=== PATIENT | female | born 1970 | race Caucasian/White ===

== ENCOUNTER 2025-05-10 11:59 | Emergency (ER) | payer BC, SELFPAY ==
--- OUTSIDE RECORDS SUMMARY | 2025-05-10 12:02 | XMS_ITS | Clinical Summary ---
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 180 Tablet 3 06/05/2022 Active tamoxifen (NOLVADEX) 20 mg tabletIndicatio ns:Ductal carcinoma in situ (DCIS) of right breast Take 1 Tablet (20 mg) by mouth once daily. 90 Tablet 3 06/05/2022 Active varenicline (CHANTIX DOSEPAK) 0.5 mg (11)- 1 mg (42) tabletIndicatio ns:Encounter for smoking cessation counseling Days 1-3 take 0.5mg once daily; Days 4-7 take 0.5mg twice daily; then increase to 1mg twice daily. Take with meals. 1 Packet 06/05/2022 Active nicotine (Nicorette) 2 mg lozengeIndicati ons:Encounter for smoking cessation counseling Place 1 Lozenge (2 mg) in mouth, between cheek & gum every hour while awake as needed for Nicotine Craving. 72 Each 3 06/05/2022 Active venlafaxine (EFFEXOR XR) 75 mg cp24 Extended-Releas e capsuleIndicati ons:Menopausal syndrome TAKE 1 CAPSULE(75 MG) BY MOUTH EVERY DAY WITH A MEAL 90 Capsule 06/23/2023 Active pramipexole (MIRAPEX) 0.5 mg tabletIndicatio ns:Restless leg syndrome TAKE 1 TABLET(0.5 MG) BY MOUTH AT BEDTIME 30 Tablet 09/24/2023 Active traZODone (DESYREL) 100 mg tabletIndicatio ns:Restless leg syndrome TAKE 2 TABLETS(200 MG) BY MOUTH AT BEDTIME 60 Tablet 09/24/2023 Active Active Problems Problem Noted Date Diagnosed Date Ductal carcinoma in situ (DCIS) of right breast 05/30/2021 Depression 10/17/2008 Resolved Problems Problem Noted Date Diagnosed Date Resolved Date Alcoholism 10/17/2008 04/17/2021 Immunizations Immunization Administration Dates Next Due COVID-19 vaccine ([employer] 30mcg/0.3mL) PF, MDV 06/01/2021 DTaP 06/27/2006 HepA-HepB (Twinrix) 06/27/2006 Influenza Virus, Unspecified 04/17/2009,04/13/20 08,06/27/2006 Influenza, IIV3 (Age 6-35 mos) 04/17/2009 Influenza, IIV3 (Age >=3 years) 04/13/2008,06/27 Influenza, IIV4 03/07/2021,06/07/2020 Influenza, IIV4 (=>6mos) MDV 04/21/2019,04/12/20 19 Pneumococcal Poly,23-Valent (Pneumovax) 03/07/20 21 Td, Preservative Free (age >= 7 Years) 6 Tdap 06/27/2006 Typhoid (injectable) 06/27/2006 Typhoid (oral) 06/27/2006 Zoster (Shingrix-RZV, recombinant) 06/05/2022 Family History Medical History Relation Name Comments No Known Problems Brother 1 No Known Problems Brother 2 No Known Problems Brother 3 No Known Problems Daughter No Known Problems Father Lung cancer Maternal Grandfather Coronary artery disease Maternal Grandmother No Known Problems Mother No Known Problems Paternal Grandfather No Known Problems Paternal Grandmother No Known Problems Sister 1 No Known Problems Sister 2 No Known Problems Son Anesthesia Malignant Hyperthermia No Family History Anesthesia Problem No Family History Cancer-breast No Family History Cancer-ovarian No Family History Relation Name Status Comments Brother 1 Alive Brother 2 Alive Brother 3 Alive Daughter Alive Father Alive Maternal Grandfather Maternal Grandmother Other Mother Alive Paternal Grandfather Paternal Grandmother Sister 1 Alive Sister 2 Alive Son Alive Social History Tobacco Use Types Packs/Day Years Used Date Smoking Tobacco: Former Cigarettes 0.3 30.8 0 06/16/1990 - 03/18/2021 Smokeless Tobacco: Former Tobacco Cessation:Counseling Given: Yes Comments:03/16/21 quit date Alcohol Use Standard Drinks/Week Comments Never 0 (1 standard drink = 0.6 oz pur e alcohol) sober since September 2007 Humiliation, Afraid, Rape, and Kick questionnair e Answer Date Recorded Fear of Current or Ex-Partner No Emotionally Abused No 05/03/2019 Physically Abused No 05/03/2019 Sexually Abused No 05/03/2019 PHQ-2 Answer Date Recorded PHQ-2 TOTAL SCORE 1 03/07/2021 Social Connections Answer Date Recorded Frequency of Communication with Friends and Fami ly Not on file 06/06/2021 Financial Resource Strain Answer Date R ecorded Difficulty of Paying Living Expenses Not on file 06/06/2021 Difficulty of Paying Living Expenses Not on file 06/06/2021 Comments No Sex and Gender Information Value Date Recorded Sex Assigned at Not on file Legal Sex Female 5:23 AM INTERNAL CONSULTANT Gender Identity Not on file Sexual Orientation Not on file Obstetrics History Last Filed Vital Signs Vital Sign Reading Time Taken Comments Blood Pressure 118/84 06/05/2022 11:10 AM INTERNAL CONSULTANT Pulse 86 06/05/2022 11:10 AM INTERNAL CONSULTANT Temperature 36.2 C (97.2 F) 04/23/2021 11:29 AM INTERNAL CONSULTANT Respiratory Rate 16 04/23/2021 12:00 PM INTERNAL CONSULTANT Oxygen Saturation 96% 06/05/2022 11:10 AM INTERNAL CONSULTANT Inhaled Oxygen Concentration - - Weight 80 kg (176 lb 6.4 oz) 06/05/2022 11:10 AM INTERNAL CONSULTANT Height 167.6 cm (5' 6) 06/05/2022 11:10 AM INTERNAL CONSULTANT Body Mass Index 28.47 06/05/2022 11:10 AM INTERNAL CONSULTANT Plan of Treatment Health Maintenance Due Date Last Done Comments HIV for age 15-65 1987 Hepatitis C screening for ag e 18-79 1990 Hepatitis B series for 19+ ( 2 of 3 - Hep B Twinrix 3-dose series) 07/25/2006 06/27/2006 Colonoscopy through age 75 2017 Depression screening for age 12+ 03/07/2022 03/07/2021, 02/16/2020, 05/05/2019, Additional history exists Pneumococcal series for age 50+ (2 of 2 - PCV) 2022 03/07/2021 RSV vaccine for adults or (1 - Risk 50-74 years 1-dose series) 2022 Zoster (shingles) series for age 50+ (2 of 2) 07/31/2022 06/05/2022 Pap test for age 21-65 03/19/2023 8, 03/19/2018, 09/10/2013, Additional history exists BMI (ht and wt on same day) for age 18+ 06/05/2023 06/05/2022, 04/17/2021, 03/07/2021, Additional history exists Lipids for age 45-75 05/03/2024 05/03/2019 Mammogram for age 45-75 05/09/2024 05/09/20 23, 06/05/2022, 04/13/2021, Additional history exists Influenza Vaccine (#1) 2025 , 06/07/2020, 04/21/2019, Additional history exists Tetanus booster 11/16/2025 11/17/2015, 06/27/2006 Procedures Procedure Name Priority Date/Time Associated Diagnosis Comments XR MAMMO ANTELMO BILAT SCREEN Routine 05/09/2023 10:33 AM INTERNAL CONSULTANT Visit for screening mammogram LIPID PANEL W REFLEX MEASURED LDL Routine 05/03/2019 3:22 PM INTERNAL CONSULTANT Lipid screening [employer] THIN PREP PAP SCREEN IMAGED Routine 03/19/2018 2:26 PM CDT Screening for malignant neoplasm of cervix from Last 3 Months or Most Recently Relevant to Health Maintenance Results * XR MAMMO ANTELMO BILAT SCREEN (05/09/2023 10:33 AM INTERNAL CONSULTANT) Anatomical Region Laterality Modality BREASTS, Breast Left, Breast Right Bilateral Mammography Impressions 05/09/2023 4:53 PM INTERNAL CONSULTANT There is no radiographic evidence for malignancy. Recommend annual mammograms. MAMMOGRAM ASSESSMENT: ACR 1 Negative PATIENTS: You will also receive a letter with your examination results in an easy to read format. If you have questions about your results, please contact your referring provider. Narrative 05/09/2023 4:53 PM INTERNAL CONSULTANT For Patients: As a result of the Century Cures Act, medical imaging exams and procedure reports are released immediately into your electronic medical record. You may view this report before your referring provider. If you have questions, please contact your health care provider. XR MAMMO ANTELMO BILAT SCREEN [[id number]] CLINICAL HISTORY: This is an asymptomatic 52 y.o. patient. INDICATION FOR EXAM: Mammogram Screening. TECHNIQUE: CC & MLO views were obtained. This study was evaluated with the assistance of Computer-Aided Detection. Breast Tomosynthesis was used in interpretation. COMPARISON FILM: Yes 06/05/22 [facility] 04/13/21 [email or web address] FINDINGS: The breasts are extremely dense, which lowers the sensitivity of mammography. There are no dominant masses, suspicious micro calcifications or areas of architectural distortion. us Joseline Kaplan MD MAMMO Final Resul t * LIPID PANEL W REFLEX MEASURED LDL [[id number]] (05/03/2019 3:22 PM INTERNAL CONSULTANT) CHOLESTEROL,TOTAL 162 100 - 199 mg/dL 05/03/2019 7:08 PM [facility] TRIGLYCERIDES 105 <150 mg/dL 05/03/2019 7:08 PM [facility] HDL CHOLESTEROL 46 >40 mg/dL 9 7:[address] [facility] NON-HDL CHOLESTEROL 116 <145 mg/dl 05/03/2019 7:[address] [facility] CHOL/HDL RATIO 3.52 <4.50 05/03/2019 7:[address] [facility] LDL CHOLESTEROL 95 <=130 mg/dL 05/03/2019 7:[address] [facility] PROVIDER ORDERED STATUS RANDOM 05/03/2019 7:08 PM [facility] Blood BLOOD SPECIMEN / Unknown Venipuncture / Unknown 05/03/2019 3:22 PM INTERNAL CONSULTANT 05/03/2019 3:23 PM INTERNAL CONSULTANT us Joseline Kaplan MD CHEMISTRY Final Resul t [facility] [address] [place] [address], [place] * [employer] TEACHER THIN PREP PAP SCREEN IMAGED [[id number]] (03/19/2018 2:26 PM CDT) Case Report Gynecologic Cytology Report Case: [id number] Authorizing Provider: Bhavani Connelly, Collected: 03/19/2018 1426 PA Ordering Location: [facility] Received: 03/19/2018 1447 Clinic First Screen: Carolin Munguia Specimen: [employer]ER ThinPrep Vial Screening, Cervical 03/29/2018 6:01 PM CDT [facility] INTERPRETATION/ RESULT NEGATIVE FOR INTRAEPITHELIAL LESION OR MALIGNANCY (NIL) (none) 03/29/2018 6:01 PM CDT [facility] at 1801 CDT ORGANISM(S) Shift in jorge suggestive of bacterial vaginosis 03/29/2018 6:01 PM CDT [facility] SPECIMEN ADEQUACY Satisfactory for evaluation No endocervical component seen 03/29/2018 6:01 PM CDT [facility] HPV REQUEST HPV and PAP 03/29/2018 6:01 PM CDT [facility] Date of LMP 02/28/18 03/29/2018 6:01 PM CDT [facility] Last Pap Date unknown 03/29/2018 6:01 PM CDT [facility] Last Pap Result First Pap/Unknown 6:01 PM CDT [facility] Abnormal Pap or [place] Bx in last 5 years No 03/29/2018 6:01 PM CDT [facility] Menstrual Status Irregular Periods 03/29/2018 6:01 PM CDT [facility] [place] Bx Done Today No 03/29/2018 6:01 PM CDT [facility] Additional Information None given 03/29/2018 6:01 PM CDT [facility] Automated Review Successful 03/29/2018 6:01 PM CDT [facility] Comment:Specimen processed s uccessfully by automated bpm architect device, [employer], [employer] ANCILLARY TESTING [employer] TE[employer]ER HPV Ordered, Please see separate report 03/29/2018 6:01 PM CDT [facility] Note The pap test is a screening technique, not a diagnostic procedure. It is used primarily to screen for squamous cancers and precursor lesions. Published studies have shown that it is subject to both false negative and false positive results. The pap test should not be used as the sole means to diagnose or exclude pre-malignant and malignant lesions. Cytology is screened and interpreted at [facility] - [address], [place] [address] and [facility] - [address]; [place] [address] [address] [facility] - [address]; [place] [address] [address] [facility] [address]; [place] [address] 03/29/2018 6:01 PM CDT [facility] Other (Cervical) Non-Blood / Unknown 03/19/2018 2:26 PM CDT 03/19/2018 2:47 PM CDT us Bhavani CROFT PATHOLOGY/CYTOLOGY Fi nal Result [facility] [address] [place] [address], from Last 3 Months or Most Recently Relevant to Health Maintenance Advance Directives * Full Code (Latest Code Status on File) Date Activated Date Inactivated Comments 04/23/2021 5:59 AM 04/23/2021 4:16 PM Assumed. Question Answer Comments Code Status Discussion: Other Care Teams Automatic Door Mechanic Relationship Specialty Start Date End Date Joseline Kaplan MD [address] [place] [address] PCP - General Family Practice 06/05/22
--- NOTE | 2025-05-10 12:31 | CRLHL7_ITS ---
For Patients: As a result of the Century Cures Act, medical imaging exams and procedure reports are released immediately into your electronic medical record. You may view this report before your referring provider. If you have questions, please contact your health care provider. INDICATION: High blood pressure, altered mental status, headache. History of breast cancer. COMPARISON: None. TECHNIQUE: CT of the brain / head without intravenous contrast. Multiplanar axial, coronal, and sagittal reformats were reconstructed. FINDINGS: No intracranial hemorrhage. Normal appearance of the white matter. No acute or subacute cortically based infarct. No cerebral edema. No mass or mass effect. Normal ventricles. No skull fractures. No worrisome focal bone lesion. IMPRESSION: Normal head CT. Please note that all CT scans at this facility use dose modulation, iterative reconstruction, and/or weight-based dosing when appropriate to reduce radiation dose to as low as reasonably achievable. Dictated by Berncie Reaves MD @ 05/10/2025 1:06:11 PM (Electronically Signed)
[2025-05-10 12:32] VITALS: BP 177/125; PULSE 97; RESP 20; TEMP 36.9; O2SAT 98; BMI 27.6
[2025-05-10 13:54] VITALS: BP 195/125; PULSE 125; RESP 18; O2SAT 98
--- NOTE | 2025-05-10 14:01 | ED.GENADULT ---
HPI - General Adult General Date Seen: 05/10/25 Chief complaint: Hypertension Stated complaint: High BP Time Seen by Provider: 05/10/25 13:53 Source: patient Mode of arrival: ambulatory Limitations: no limitations History of Present Illness HPI narrative: Patient is a 54-year-old female sent to the emergency department from urgent care. She states she has been on blood pressure medication for the past year. Recently low over the past few weeks her blood pressure has been going up. She is currently only on 5 mg of lisinopril daily. She states over the past few weeks she just has been feeling herself. Occasionally feeling fatigued. Has not noticed any changes to personally though. Has not had any chest pain, shortness of breath, vision changes, lightheadedness, dizziness, weakness, numbness, abdominal pain. Occasionally has a headache but currently is not having a headache. She is in town visiting family considering she does not feeling herself again this morning she went to urgent care for evaluation. She was then sent to the emergency department for head CT considering her history of cancer and there is some concern may be a brain mass that could be causing symptoms and her hypertension. She is currently cancer free she states. Related Data Home Medications ?Medication ?Instructions ?Recorded ?Confirmed acetaminophen 500 mg tablet 1,000 mg PO Q6H PRN 01/11/22 05/10/25 (Tylenol Extra Strength) pramipexole 0.5 mg tablet (Mirapex) 0.5 mg PO QPM 01/11/22 05/10/25 trazodone 100 mg tablet 100 mg PO QDAY 01/11/22 05/10/25 venlafaxine 37.5 mg tablet 37.5 mg PO QDAY 01/11/22 05/10/25 lisinopril 5 mg tablet 5 mg PO QPM 05/10/25 05/10/25 Previous Rx's ?Medication ?Instructions ?Recorded dronabinol 5 mg capsule 5 mg PO BID #120 caps 01/11/22 tamoxifen 20 mg tablet 20 mg PO QDAY #90 tabs 01/11/22 lisinopril 10 mg tablet 10 mg PO DAILY #30 tabs 05/10/25 Allergies Allergy/AdvReac Type Severity Reaction Status Date / Time No Known Drug Allergies Allergy Verified 05/10/25 12:40 Review of Systems Status of ROS: Reports: 10 or more systems reviewed and unremarkable except as noted in History and below [facility] Medical History Ductal carcinoma in situ (DCIS) of right breast ?D05.11 - Intraductal carcinoma in situ of right breast (ICD-10) Exam Narrative: Exam Narrative: Const: Well-nourished, Well-developed, in mild distress Eyes: PERRL, no conjunctival injection, and symmetrical lids HENT: Atraumatic external nose and ears. Moist mucous membranes. Neck: Symmetric, trachea midline, No thyromegaly. CVS: RRR, No murmurs or gallops. Peripheral pulses 2+ and equal in all extremities RESP: Unlabored respiratory effort. Clear to auscultation bilaterally. GI: Nontender/Nondistended, No rebound or guarding. MSK:Extremities w/o deformity, Normal Active ROM Skin: Warm, Dry. No rashes or lesions. Neuro: Normal Muscle tone, Cranial nerves 2-12 grossly intact, normal [id number], normal [id number], normal gait, normal strength 5/5 upper lower extremities bilaterally, normal sensation upper and lower extremities bilaterally, normal rapid alternating movements. Psych: Awake, Alert, & Oriented x3. Appropriate mood and affect. Const: Vital Signs, click to edit/add: Vital Signs - 24 hr 05/10/25 12:32 05/10/25 13:54 Temperature 98.4 F Pulse Rate [Pulse Oximeter] 97 125 H Respiratory Rate 20 18 Blood Pressure [Ri ght Upper Arm] 177/125 H 195/125 H Pulse Oximetry 98 98 Oxygen Delivery Me thod Room Air Room Air Course Vital Signs Vital signs: Initial Vital Signs Temperature 98.4 F 05/10/25 12:32 Temperature Source Temporal Artery Scan 05/10/25 12:32 Pulse Rate 97 05/10/25 12:32 Respiratory Rate 20 05/10/25 12:32 Blood Pressure 177/125 H 05/10/25 12:32 Blood Pressure Mean 142 H 05/10/25 12:32 Blood Pressure Position Sitting 05/10/25 12:32 Pulse Oximetry 98 05/10/25 12:32 Oxygen Delivery Method Room Air 05/10/25 12:32 Vital Signs Temperature 98.4 F 05/10/25 12:32 Pulse Rate 97 05/10/25 12:32 Respiratory Rate 20 05/10/25 12:32 Blood Pressure 177/125 H 05/10/25 12:32 Pulse Oximetry 98 05/10/25 12:32 Oxygen Delivery Method Room Air 05/10/25 12:32 Temperature 98.4 F 05/10/25 12:32 Pulse Rate 125 H 05/10/25 13:54 Respiratory Rate 18 05/10/25 13:54 Blood Pressure 195/125 H 05/10/25 13:54 Pulse Oximetry 98 05/10/25 13:54 Oxygen Delivery Method Room Air 05/10/25 13:54 Medical Decision Making MDM Narrative Medical decision making narrative: Patient is a 54-year-old female presenting to emergency department for hypertension and intermittent headache. Head CT was ordered in triage. She is otherwise asymptomatic from her blood pressure. Her blood pressure is currently 195/125. She does states she has been very anxious recently. Head CT interpreted by myself and the radiologist show no concerning abnormalities. She is currently asymptomatic. Her ACEP guidelines asymptomatic hypertension does not require further workup. Will increase her lisinopril dose of 5 mg daily to 10 mg. I informed her to follow up with her primary care provider. She is agreeable to this plan Imaging Data CT scan - head: Attestation: I have reviewed the pertinent imaging results. Radiologist's impression: Normal head CT. Please note that all CT scans at this facility use dose modulation, iterative reconstruction, and/or weight-based dosing when appropriate to reduce radiation dose to as low as reasonably achievable. Dictated by Bernice Reaves MD @ 05/10/2025 1:06:11 PM Discharge Plan Discharge Clinical Impression: Hypertension Qualifiers: Hypertension type: unspecified Qualified Code(s): I10 - Essential (primary) hypertension Headache Qualifiers: Headache type: unspecified Headache chronicity pattern: episodic headache Intractability: not intractable Qualified Code(s): R51.9 - Headache, unspecified Patient Disposition: Home, Self-Care Condition: Stable Instructions: Hypertension (ED) Additional Instructions: Recommend increasing your lisinopril from 5 mg daily to 10 mg daily. Also recommend close follow-up with the primary care provider. A minimum call them today and tomorrow to let them know your lisinopril was increased. Return to emergency department for new or worsening symptoms. Prescriptions: New lisinopril 10 mg tablet 10 mg PO DAILY Qty: 30 0RF No Action lisinopril 5 mg tablet 5 mg PO QPM pramipexole [Mirapex] 0.5 mg tablet 0.5 mg PO QPM Rx Instructions: administer 2 - 3 hours before bedtime acetaminophen [Tylenol Extra Strength] 500 mg tablet 1,000 mg PO Q6H PRN trazodone 100 mg tablet 100 mg PO QDAY venlafaxine 37.5 mg tablet 37.5 mg PO QDAY dronabinol 5 mg capsule 5 mg PO BID Qty: 120 0RF tamoxifen 20 mg tablet 20 mg PO QDAY Qty: 90 1RF Follow Up/Referrals: Bhavani Connelly PA-C [Primary Care Provider, Family Practice] Stand Alone Forms: [facility] Info Instructions
== END 2025-05-10 14:27 | disposition home or self-care (01) ==
PROVIDERS: Emergency Provider Student in an Organized Health Care Education/Training Program; PCP Physician Assistant Medical
DX: I10 Essential (primary) hypertension (principal); R51.9 Headache, unspecified
CPT/HCPCS: 70450; 99283; 99284